=== PATIENT | male | born 1990 | race Caucasian/White ===

== ENCOUNTER 2023-02-10 08:36 | Emergency (ER) | payer OTHER ==
[~2023-02-10] VITALS: Ht 180.3 cm; Wt 136.0 kg
[~2023-02-10 08:36] MED LIST: ALBU0.084
[2023-02-10 09:36] VITALS: BP 136/73; PULSE 79; RESP 17; TEMP 98.1; O2SAT 94
== END 2023-02-10 10:08 | disposition home or self-care (01) ==
LOC: ER 08:36
DX: S93.601A Unspecified sprain of right foot, initial encounter (principal); W18.09XA Striking against other object with subsequent fall, initial encounter; Y93.89 Activity, other specified; Y92.69 Other specified industrial and construction area as the place of occurrence of the external cause; Y99.8 Other external cause status
CPT/HCPCS: 73630